=== PATIENT | female | born 1935 | race Caucasian/White ===

== ENCOUNTER 2017-02-11 02:28 | Inpatient (IN) | payer MEDICARE, OTHER ==
[~2017-02-11] VITALS: Ht 160 cm; Wt 86.5 kg
--- NOTE | ~2017-02-11 | ECH ---
Transthoracic Echocardiography Report (TTE) Demographics Patient Name DARYL MARTINEZ Date of Study 02/11/2017 Patient Number [id number] Visit Number [id number] Date of 1935 Room Number 315 Accession Number [id number] Gender Female Age 81 year(s) Referring Cassie Yu MD Size Maker Ana Fernandez Physician RDCS Physician Greyson Ortez MD Metal Window Frame Maker Physician Yaw Supervising Ordering Physician Vladimir James MD/ANIYAH VILLASENOR Nurse Stress Dice Manager Conclusions Contractility Score Summary Normal Left Ventricular contractility was noted. Summary Technically adequate exam. The estimated left ventricular ejection fraction is 60%. Mild concentric left ventricular hypertrophy. Mild biatrial enlargement. Mild tricuspid regurgitation by color Doppler. There is mild pulmonary hypertension. The pulmonary pressure (RVSP) is 44 mmHg. Recommendation The patient will be given the results of this study by the physician who ordered the exam. Procedure Type of Study TTE procedure:Echo Complete SF. Procedure Date Date: 02/11/2017 Start: 02:45 Technical Quality: Adequate visualization Indications:Congestive heart failure and Syncope. Appropriate Use Criteria: 9 Height: 63 inches Weight: 193 pounds BSA: 1.9 m Rhythm: NSR HR: 70 bpm BP: 117/48 mmHg M-Mode/2D Measurements LV Diastolic Dimension: 4.34 cm LV Systolic Dimension: 2.98 cm LV Septum Diastolic: 1.2 cm LV PW Diastolic: 1.19 cm AO Root Dimension: 2.72 cm Cardiac Output: 4.47 l/min LA Dimension: 3.8 cm Cardiac Index: 2.35 l/min*m RV Diastolic Dimension: 3.88 cm LA volume index: 36 ml/m LVOT: 1.73 cm LVOT VTI: 27.21 cm RV Base: 3.4 cm LV Stroke volume: 63.93 ml RV Mid: 2.6 cm LV Stroke volume index: 33.65 ml/m TAPSE: 2.1 cm TDI-S': 15 cm/s Doppler Measurements AV Peak Velocity: 1.4 m/s MV Peak E-Wave: 1.14 m/s AV Peak Gradient: 7.84 mmHg MV Peak A-Wave: 0.81 m/s AV Mean Gradient: 4.09 mmHg MV E/A Ratio: 1.41 LVOT Peak Velocity: 1.33 m/s MV P1/2t: 57.7 msec AV Area (Continuity):2.31 cm MV Deceleration Time: 182.3 msec TR Velocity:3.21 m/s MV Area (PHT): 3.81 cm TR Gradient:41.22 mmHg PV Peak Velocity: 1.02 m/s Estimated RAP:3 mmHg PV Peak Gradient: 4.14 mmHg Estimated RVSP: 44 mmHg Estimated PASP: 44.22 mmHg E' Septal Velocity: 0.07 m/s A' Septal Velocity: 0.04 m/s E' Lateral Velocity: 0.09 m/s A' Lateral Velocity: 0.03 m/s RA Area: 18.09 cm Findings Left Ventricle The left ventricle is normal in size . Mild concentric left ventricular hypertrophy. Diastolic assessment reveals normal relaxation. Right Ventricle Normal right ventricle structure and function. Left Atrium The left atrium is mildly dilated by LA volume index measurement. Right Atrium The right atrium is mildly dilated. Mitral Valve Moderate mitral annular calcification. Trivial mitral regurgitation by color Doppler. Aortic Valve The aortic valve is mildly sclerotic. Tricuspid Valve Normal tricuspid valve structure and function. Mild tricuspid regurgitation by color Doppler. There is mild pulmonary hypertension. The pulmonary pressure (RVSP) is 44 mmHg. Pulmonic Valve Normal pulmonic valve structure and function. Pericardial Effusion No evidence of pericardial effusion. Miscellaneous Visualized portions of the aortic root and ascending aorta appear normal in size. Pleural Effusion No evidence of pleural effusion. Contractility Score LV regional wall motion:(0-Non visualized 1-Normal 2-Hypokinesis 3-Akinesis 4-Dyskinesis 5-Aneurysm) Signature
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
[2017-02-19] MEDS ORDERED: CARVEDILOL25 MG PO (12:48)
[2017-02-19] MEDS ORDERED: ZOCOR DPS10 MG PO (12:49)
[2017-02-19] MEDS ORDERED: SYNTHROID112 MCG PO (12:49)
[2017-02-19] MEDS ORDERED: MAG-OX400 MG PO (12:49)
[2017-02-19] MEDS ORDERED: LASIX DPS40 MG PO (12:49)
[2017-02-19] MEDS ORDERED: DUONEB DPS3 ML IH (12:50)
[2017-02-19] MEDS ORDERED: COLACE-DPS100 MG PO (12:50)
[2017-02-19] MEDS ORDERED: MAALOX DPS30 ML PO (12:50)
[2017-02-19] MEDS ORDERED: COUMADIN DPS3 MG PO (12:50)
[2017-02-19] MEDS ORDERED: TYLENOL DPS325 MG PO (12:51)
[2017-02-19] MEDS ORDERED: OMNICEF DPS300 MG PO (12:51)
--- NOTE | 2017-02-26 07:20 | DS ---
ADMIT: 02/11/2017 RM/LOC: 418 [facility] MR#: [id number] [address] [place] [address] MARISELA MARTINEZ [address] [place] [address] General Discharge Summary SEX: F AGE: 81 : 1935 ADMISSION DATE: 02/11/2017 DISCHARGE DATE: 02/18/2017 ADMITTING DIAGNOSIS: Acute respiratory failure. DISMISSAL DIAGNOSIS: Respiratory failure, ventilator management, resolved. COMPLICATING DIAGNOSES: 1. Pneumonia. 2. History of breast cancer. 3. Chronic kidney disease. 4. History of renal cancer. 5. Hypothyroidism. 6. Chronic venous insufficiency. 7. History of multiple pulmonary emboli. CONSULTANTS: Zeke Gilbert MD, Intensive Care. CHIEF COMPLAINT AND HISTORY OF PRESENT ILLNESS: An 81-year-old female, was seen in the office on February 10 with bronchitis. That night, she was at home in [place] with her , Mateo. Mateo was able to give the following history. He states [place] called for help, she had fallen, he was not able to get her up. Ambulance was called. She was brought into the emergency room in [place]. She was evaluated there by physician assistant principal, Nick Stephen. Nick states when she arrived, she was cyanotic respiratory status required intubation. They did do a noncontrast CT of the head and also of the neck did not show any signs of any intracranial bleed or her cervical vertebral injury. Chest x-ray showed right lower lung to be opacified. They were concerned for pneumonia and sepsis and cultures of the blood were obtained. She was given IV Zosyn en route to [place]. She was transferred to [facility] for ICU admission and ventilator management by Dr. Gilbert. LABORATORY REPORTS: On admission; her white count was 18.9 and hemoglobin 13.6. Following day, white count was 10.8. Prior to dismissal; white count was 5.6, hemoglobin 12.0, and platelets were 285,000. INR prior to dismissal was 3.47. Electrolytes prior to dismissal; sodium 142, potassium 3.8, BUN 14, creatinine 1.1, and glucose 87. Procalcitonin on February 13 was 37.96. On February 11, procalcitonin was 59.72. ABGs on admission showed a pH of 7.32, pCO2 of 41, and PO2 of 89. Gram stain of the bronchial alveolar lavage showed no bacteria with many wbc's and many rbc's. Culture of the lavage grew out Haemophilus influenza. Respiratory pathogen panel was negative. Carotid ultrasound was obtained showed diffuse atheromatous plaque, but no significant stenosis. CT of the chest on February 11 showed small right and left pleural effusions with appropriate placement of ET tube. Serial chest x-ray showed no change. Chest x-ray on February 17 showed bilateral lower lobe opacities, mild interstitial edema. Carotid ultrasound did show the possible stenosis, so MRA was ordered, which showed no signs of any significant stenosis. Ultrasound lower extremities did not show any DVT. Echocardiogram showed ejection fraction 60% with mild LVH. Mild pulmonary hypertension, no signs of a PFO. ADMIT: 02/11/2017 RM/LOC: 418 [facility] MR#: [id number] [address] [place] [id number] MARISELA MARTINEZ F [address] [place] [address] General Discharge Summary SEX: F AGE: 81 : 1935 COURSE IN THE HOSPITAL: Marisela was admitted directly to the intensive care. Intensive Care consult was obtained. She was placed on IV meropenem and IV vancomycin. Ventilator settings were managed by Dr. Gilbert. There was concern on my part for possible recurrence of pulmonary embolus with her history of multiple PEs in the past. She did not have a contrasted CT of the chest due to the presence of only one functioning kidney and her creatinine was 1.9. D- dimer was reported as elevated. She was started on IV heparin protocol for pulmonary emboli. The following day, she was stable and was extubated. She is actually alert and able to give history and did remember and recall the events of falling at home, did not lose consciousness. Her renal function improved with hydration. She was switched from heparin to Coumadin once her INR was therapeutic. The heparin was discontinued. There was question of carotid artery stenosis on ultrasound, so the MRA was ordered, but it did not show any stenosis. She was moved to telemetry. Physical therapy was instituted, and she was able ambulate. Coumadin dosages were adjusted. INR was above 3. Her Coumadin was held, and the dosage was reduced from 5 mg to 3 mg prior to dismissal. She did have some fluid retention, was placed on Lasix. DISCHARGE MEDICATIONS: At time of dismissal, she was sent home on: 1. Coreg 25 mg b.i.d. 2. Coumadin 3 mg daily. 3. Lasix 60 mg daily. 4. Mag oxide 400 mg daily. 5. Synthroid 112 mcg daily. 6. Zocor 10 mg daily. 7. DuoNeb twinjet nebulizer q.i.d. 8. P.r.n. Colace, Maalox, and Tylenol. 9. Simvastatin 10 mg at bedtime. 10.Arimidex 1 mg daily. 11.Calcium with vitamin D supplements. 12.She has oxygen at home for night time, she is to continue on that. 13.She sent home on Omnicef 300 mg p.o. b.i.d. for 10 days. DISCHARGE INSTRUCTIONS: She will be seen back in the office in 6 days for followup. Damian Matthews MD/ samra JOB #: [id number] CC: Damian Matthews MD, Attending Physician Damian Matthews MD, Family Physician
== END 2017-02-18 14:46 | disposition home or self-care (01) | DRG 871 ==
LOC: 3ICU 02:28 → 4PCU 02-13 04:48
PROVIDERS: ADMIT Family Medicine
PROC: 5A1935Z Respiratory Ventilation, Less than 24 Consecutive Hours (ICD-10-PCS; principal; 2017-02-11)
DX: A41.9 Sepsis, unspecified organism (principal); J15.6 Pneumonia due to other Gram-negative bacteria; J96.01 Acute respiratory failure with hypoxia; N17.9 Acute kidney failure, unspecified; I10 Essential (primary) hypertension; I25.10 Atherosclerotic heart disease of native coronary artery without angina pectoris; I27.2 Other secondary pulmonary hypertension; I87.2 Venous insufficiency (chronic) (peripheral); E03.9 Hypothyroidism, unspecified; N18.1 Chronic kidney disease, stage 1; Z90.5 Acquired absence of kidney; Z96.611 Presence of right artificial shoulder joint; Z96.652 Presence of left artificial knee joint; Z86.718 Personal history of other venous thrombosis and embolism; Z85.528 Personal history of other malignant neoplasm of kidney; Z86.711 Personal history of pulmonary embolism; Z85.3 Personal history of malignant neoplasm of breast; Z90.12 Acquired absence of left breast and nipple; Z79.82 Long term (current) use of aspirin